=== PATIENT | female | born 1985 | race Caucasian/White ===

== ENCOUNTER → 2020-11-15 09:59 | Outpatient (CLI) | payer BC, SELFPAY ==
[2020-11-15 10:26] LABS: Add Manual Diff / Slide Review NO; Basophils Absolute Auto 100 /uL (0-100); Basophils Percent Auto 0.6 % (0-2); Eosinophils Absolute Auto 300 /uL (0-450); Hemoglobin 11.8 g/dL (12.0-16.0); Lymphocytes Absolute Auto 2100 /uL (1100-4500); Lymphocytes Percent Auto 22.1 % (25-40); Mean Corpuscular HGB Conc 33.6 % (30-36); Mean Corpuscular Hemoglobin 30.1 PG (26-34); Mean Corpuscular Volume 89.6 fL (80-100); Monocytes Absolute Auto 500 /uL (0-900); Monocytes Percent Auto 5.2 % (3-14); Neutrophils Absolute Auto 6700 /uL (1500-7000); Neutrophils Percent Auto 69.1 % (50-75); Platelet Count 278 X10^3/uL (150-400); Red Blood Cell Count 3.91 X10^6/uL (4.0-5.2); Red Cell Distribution Width 14.5 % (11.6-14.8); White Blood Cell Count 9.7 X10^3/uL (4.5-11.0)
[2020-11-15 11:20] LABS: Appearance Urine UA CLEAR; Bilirubin Urine UA NEGATIVE (NEGATIVE); Color Urine UA YELLOW; Glucose Urine UA NEGATIVE (Negative); Ketones Urine UA NEGATIVE (NEGATIVE); Leukocyte Esterase Urine UA NEGATIVE (NEGATIVE); Nitrite Urine UA NEGATIVE (Negative); Occult Blood Urine UA NEGATIVE (Negative); Protein Urine UA NEGATIVE (Negative); Urobilinogen Urine UA 0.2 E.U./dL (0.2)
[2020-11-15 11:25] LABS: Hepatitis B Surface Antigen NEGATIVE s/c (NEGATIVE)
[2020-11-15 11:39] LABS: HIV 1 & 2 Ab/Ag 4th Gen Combo NEGATIVE (NEGATIVE); Hep C Virus Ab w/Reflex Quant NEGATIVE s/c (NEGATIVE)
[2020-11-16 06:19] LABS: RPR Screen Non Reactive (Non Reactive)
[2020-11-16 09:33] LABS: Varicella IgG Antibody 2007 index (Immune >165)
== END ==
PROVIDERS: Family Provider Specialist; Referring Provider Specialist; Visit Provider Specialist
DX: Z34.81 Encounter for supervision of other normal pregnancy, first trimester (principal)
CPT/HCPCS: 36415; 80055; 81003; 86787; 86803; 86850; 86900; 86901; 87086; 87389

== ENCOUNTER → 2020-11-29 10:12 | Outpatient (CLI) | payer BC, SELFPAY | PROVIDERS: Family Provider Specialist; Referring Provider Specialist; Visit Provider Specialist | DX: O09.521 Supervision of elderly multigravida, first trimester (principal); O09.811 Supervision of pregnancy resulting from assisted reproductive technology, first trimester; Z36.0 Encounter for antenatal screening for chromosomal anomalies | CPT/HCPCS: 36415; 81420 ==

== ENCOUNTER → 2021-01-24 15:41 | Outpatient (CLI) | payer BC, SELFPAY ==
--- NOTE | 2021-01-24 15:41 | DI.US.S_ITS ---
PROCEDURE: US OB >= 14 WEEKS FETUS INDICATIONS: 20 WEEK ANATOMY OUTSIDE/PRIOR DATING DATA: Last menstrual period (LMP): 08/27/2020. LMP-based estimated date of delivery (DANIAL): 06/03/2021 . First dating scan (date and location): 01/24/2021 . Estimated date of delivery (DANIAL) from first dating scan: 06/05/2021 . TECHNIQUE: Real-time scanning was performed of the fetus, with image documentation and biometric measurements. Endovaginal scanning: No COMPARISON: [facility], , OB <= 14 WEEKS FETUS, 11/15/2020, 9:45. FINDINGS: General: A single living intrauterine gestation is present. Presentation: Variable. Placenta: Placental position is anterior , without previa. Amniotic fluid index: 12.6 cm, normal range is 5-24 cm. heart rate: 141 beats per minute. Maternal cervical canal: 4.0 cm long. Normal lower limit is 2.5 cm. biometrics: Biparietal diameter: 20 weeks 6 days Head circumference: 20 weeks 4 days Abdominal circumference: 20 weeks 4 days Femur length: 22 weeks 3 days Estimated gestational age from initial scan: not applicable. Composite gestational age from present scan: 21 weeks 1 day Estimated weight and percentile: 416 g; 39 percentile. Measurement variability for biometric dating: +/- 7 days from 14 weeks to 15 weeks 6 days gestation, +/- 10 days from 16 weeks to 21 weeks 6 days gestation, +/- 2 weeks from 22 weeks to 27 weeks 6 days gestation, +/- 3 weeks for 28 weeks gestation or later. weight reference: 4500 g or EFW >90/95% is considered macrosomia or large for gestational age. EFW <10% is small for gestational age. EFW 5% or less is considered intra-uterine growth restriction. Anatomic survey: Neuro: Ventricles are non-dilated at less than 10 mm. Cisterna magna is normal at 3-11 mm. Cerebellum is normal in size and morphology. Nuchal skin fold: Normal at less than 6 mm between 14-21 weeks gestational age. Face: Not well seen. Spine: No evidence for spina bifida. Heart: Not well seen. Diaphragm: Diaphragm is intact. Stomach: Left-sided stomach is present. Kidneys: No hydronephrosis. Normal is less than 5 mm in 2nd trimester, less than 7 mm in 3rd trimester. Cord: 3-vessel cord has orthotopic insertion. Bladder: Normal in size. Extremities: All 4 extremities identified. IMPRESSION: 1. 21 week 1 day single living IUP corresponding to ultrasound DANIAL of 06/05/2021. 2. face and heart suboptimally visualized; otherwise normal anatomy. Follow-up is recommended. Dictated by: Santos Montiel [facility] Interpreted: Radha Billy MD on 01/24/2021 at 16:58 Transcribed by: RASHMI on 01/24/2021 at 17:01 Approved by: Radha Billy MD, PhD on 01/24/2021 at 18:00
== END ==
PROVIDERS: Family Provider Specialist; Referring Provider Specialist; Visit Provider Specialist
DX: Z34.82 Encounter for supervision of other normal pregnancy, second trimester (principal); Z3A.21 21 weeks gestation of pregnancy
CPT/HCPCS: 76811

== ENCOUNTER → 2021-02-08 16:13 | Outpatient (CLI) | payer BC, SELFPAY ==
--- NOTE | 2021-02-08 16:15 | DI.US.S_ITS ---
PROCEDURE: US OB FOLLOW UP INDICATIONS: FOLLOW UP FACE AND HEART OUTSIDE/PRIOR DATING DATA: Last menstrual period (LMP): 08/27/20 . LMP-based estimated date of delivery (DANIAL): 06/03/21 . First dating scan (date and location): 01/24/21 . Estimated date of delivery (DANIAL) from first dating scan: 06/05/21 . TECHNIQUE: Real-time scanning was performed of the fetus, with image documentation. Endovaginal scanning: Not performed COMPARISON: [facility], OB >= 14 WEEKS FETUS, 01/24/2021, 14:55. FINDINGS: A single living intrauterine gestation is present. Presentation: Variable. Placenta: Placental position is anterior , without previa. Amniotic fluid index: 16.3 cm, normal range is 5-24 cm. heart rate: 144 beats per minute. Maternal cervical canal: 3.2 cm long. Normal lower limit is 2.5 cm. Estimated gestational age from initial scan: 23 weeks two days . 4 chambered heart and normal cardiac outflow tracts were seen on today's exam. facial profile including orbits, nose, and lips appear normal. IMPRESSION: 1. Single living intrauterine . 2. Completion of a normal anatomic survey with visualization of normal heart and facial features. Dictated by: Margret Murillo M.D. on 02/09/2021 at 10:14 Approved by: Margret Murillo M.D. on 02/09/2021 at 10:18
== END ==
PROVIDERS: Family Provider Specialist; Referring Provider Specialist; Visit Provider Specialist
DX: Z36.2 Encounter for other antenatal screening follow-up; Z3A.23 23 weeks gestation of pregnancy
CPT/HCPCS: 76816

== ENCOUNTER → 2021-03-19 13:12 | Outpatient (CLI) | payer BC, SELFPAY ==
[2021-03-19 17:11] LABS: Hematocrit 30.7 % (36-46); Hemoglobin 10.2 g/dL (12.0-16.0)
[2021-03-19 17:40] LABS: GTT (PREG) 1 Hour PP 50gm Dose 140 mg/dL (76-139)
== END ==
PROVIDERS: Family Provider Specialist; Referring Provider Specialist; Visit Provider Specialist
DX: Z34.82 Encounter for supervision of other normal pregnancy, second trimester (principal); Z3A.26 26 weeks gestation of pregnancy
CPT/HCPCS: 36415; 82950; 85014; 85018

== ENCOUNTER → 2021-03-28 08:21 | Outpatient (CLI) | payer BC, SELFPAY ==
[2021-03-28 09:12] LABS: Glucose Fasting Gestational 83 mg/dL (76-95)
[2021-03-28 10:19] LABS: Glucose 1 Hour Gest 170 mg/dL (76-180)
[2021-03-28 11:06] LABS: Glucose 2 Hour Gest 164 mg/dL (76-155)
[2021-03-28 11:42] LABS: Glucose Tol Interp,Gestational INTERPRETATION
[2021-03-28 13:30] LABS: Glucose 3 Hour Gest 67 mg/dL (76-140)
== END ==
PROVIDERS: Family Provider Specialist; Referring Provider Specialist; Visit Provider Specialist
DX: O99.810 Abnormal glucose complicating pregnancy (principal)
CPT/HCPCS: 36415; 82951; 82952

== ENCOUNTER → 2021-05-04 17:27 | Outpatient (CLI) | payer BC, SELFPAY ==
[2021-05-05 12:50] LABS: Strep Grp B PCR POS for Grp B Strep
== END ==
PROVIDERS: Family Provider Specialist; Visit Provider Specialist
DX: Z34.83 Encounter for supervision of other normal pregnancy, third trimester (principal); Z3A.35 35 weeks gestation of pregnancy
CPT/HCPCS: 87653

== ENCOUNTER 2021-05-29 05:26 | Inpatient (IN) | payer OTHER, SELFPAY ==
[2021-05-29] VITALS (7 sets, daily range): BP systolic 88–155; BP diastolic 48–92; PULSE 72–94; RESP 12–16; TEMP 36.3–37.1; O2SAT 97–100
[2021-05-29 06:42] LABS: Add Manual Diff / Slide Review NO; Basophils Absolute Auto 100 /uL (0-100); Basophils Percent Auto 0.9 % (0-2); Eosinophils Absolute Auto 200 /uL (0-450); Eosinophils Percent Auto 2.7 % (2-4); Hematocrit 32.9 % (36-46); Hemoglobin 11.1 g/dL (12.0-16.0); Lymphocytes Absolute Auto 1900 /uL (1100-4500); Lymphocytes Percent Auto 21.7 % (25-40); Mean Corpuscular HGB Conc 33.7 % (30-36); Mean Corpuscular Hemoglobin 29.4 PG (26-34); Mean Corpuscular Volume 87.4 fL (80-100); Monocytes Absolute Auto 600 /uL (0-900); Neutrophils Absolute Auto 5900 /uL (1500-7000); Neutrophils Percent Auto 67.7 % (50-75); Platelet Count 191 X10^3/uL (150-400); Red Blood Cell Count 3.76 X10^6/uL (4.0-5.2); Red Cell Distribution Width 16.1 % (11.6-14.8); White Blood Cell Count 8.7 X10^3/uL (4.5-11.0)
--- NOTE | 2021-05-29 06:47 | P.HPOB_ITS ---
OB HPI Date/Time Date of admission: 05/29/21 Date Patient Seen: 05/29/21 Time Patient Seen: 06:47 History of Present Condition Chief complaint: REPEAT : 2 Para: 1 Estimated Date of Delivery: 06/03/21 Estimated Gestational Age (weeks): 39 Narrative: Richelle Iniguez is a 36 year old female admitted for repeat section at 39 weeks Indications Operative indications ( section): previous uterine surgery History of Present care: good care, initiated at week # (11), number of visits (8) and pounds weight gain (36) Dating criteria: other (Embryo transfer) Ultrasounds: normal mid trimester US Obstetrical complications: none Medical complications: none Preadmission Labs Blood type: O (+) positive -: Antibody screen: negative, GBS status: positive, HBsAG: negative, HIV: negative and RPR/VDLR: negative -: Chlamydia screen: not detected and Gonorrhea screen: not detected -: Rubella: immune and Varicella: immune Cell-free DNA: Normal female 1 hr GTT: 140 3 hr GTT: 1 hr (170), 2 hr (164) and 3 hr (67) Fasting blood glucose: 83 Prior (ies) History: 10/07/16 39 week gestation 9 lb 3 oz male Evaluation Evaluation Baseline heart rate: 140 Variability: Moderate (11-25) monitor accelerations: Present Monitor Decelerations: Absent Contraction Frequency (minutes): 0 Category of Tracing: Reactive Status: Category l PFSH Medical History (Updated 03/19/21 @ 14:54 by Darcy Abreu MD) AMA (advanced maternal age) multigravida 35+ COVID-19 virus infection (~12/2020) Delivered by section Gestational hypertension History of in vitro fertilization (~09/15/20) HSV-1 infection (~2015) Infertility PCOS (polycystic ovarian syndrome) Post depression (~2016) Surgical History (Updated 11/06/20 @ 14:44 by Ashly Cullen RN) History of primary section (~10/07/16) [place] teeth extracted Family History (Updated 11/06/20 @ 14:43 by Ashly Cullen RN) Mother Cancer Breast cancer Father Diabetes mellitus Heart disease Cancer Prostate cancer Shingles Cirrhosis of liver Type 2 diabetes mellitus Grandmother Old age Grandfather CVA (cerebral vascular accident) Pneumonia Grandmother Cancer Grandfather Cancer Heavy smoker Lung cancer Brother Diabetes mellitus Type 2 diabetes mellitus Family/Other Altered cardiac tissue perfusion Social History marital status: number of children: 1 household members: spouse and children lives independently: Yes pets and animals: Yes (Dogs X 2; outdoor cats X 2) education level: college (BA in Psych) occupational status: employed current occupational exposures/hazards: No Previous occupational history: [employer]; Works at [employer] special chel needs: No Smoking Status: Former smoker (Experimental use on rare occasion ) second hand exposure: No alcohol intake: former (pre- : social use/on occasion/weekends) substance use type: does not use Meds Home Medications and Allergies Home Medications Medication Instructions Recorded Confirmed Type prenat.vits,michael,nmu-csui-zeosd 1 tab PO DAILY 11/06/20 05/18/21 History hydroxyzine pamoate 25 mg capsule 25 mg PO BEDTIME #30 cap 03/19/21 05/18/21 Rx Allergies Allergy/AdvReac Type Severity Reaction Status Date / Time No Known Drug Allergies Allergy Unverified 11/15/20 08:55 Review of Systems Review of Systems Narrative: Patient denies headaches, scotomata, epigastric pain. No leakage of fluid. Good movement. OB Exam Narrative Exam Narrative: Blood pressure 134/84, pulse of 80, temperature 97.5? HEENT exam within normal limits. Lungs are clear to auscultation percussion. Heart is regular rate and rhythm no S3-S4 murmurs. Abdomen is gravid. Fetus is vertex. Extremities without edema and nontender. Objective Labs Result Diagrams: 05/29/21 06:20 Labs: Laboratory Results - last 24 hr 05/29/21 06:20 WBC 8.7 RBC 3.76 L Hgb 11.1 L Hct 32.9 L MCV 87.4 MCH 29.4 MCHC 33.7 RDW 16.1 H Plt Count 191 Neut % (Auto) 67.7 Lymph % (Auto) 21.7 L [place] % (Auto) 7.0 Eos % (Auto) 2.7 Baso % (Auto) 0.9 Neut # (Auto) 5900 Lymph # (Auto) 1900 [place] # (Auto) 600 Eos # (Auto) 200 Baso # (Auto) 100 Assessment and Plan Assessment and Plan Assessment and Plan narrative: 39 week gestation with prior section for repeat
--- NOTE | 2021-05-29 06:52 | PM.PREOP ---
Pre-operative Note COVID-19 COVID-19 status: Result pending Result date/Date tested (Pos, Neg/Pending): 05/29/21 Interval Note History & Physical reviewed/Exam performed by Physician: Yes Changes to H&P: No
[2021-05-29 06:58] LABS: COVID19 -Nasal RAPID Negative (Negative)
--- NOTE | 2021-05-29 07:12 | SUR.OPER ---
Supine on padded OR bed, head on pillow, arms secured on padded arm boards at <90 degrees abduction, legs uncrossed, safety belt at thigh, tape over blanket over lower legs. Bump placed under patient's right hip.
[2021-05-29] MEDS: LACTATED RINGERS 1,000 ML 100 ML IV ×4 (07:22→15:55)
[2021-05-29] MEDS: CEFAZOLIN 2 GM/20 ML SYRINGE IV (08:30)
--- NOTE | 2021-05-29 09:13 | SUR.OPER ---
cord blood x2 and placenta given to ob nurse. Viable baby girl born at 0908.
--- NOTE | 2021-05-29 10:00 | PM.OBCS.1 ---
Operative Date/Time/Diagnoses Date of procedure: 05/29/21 Time of procedure: 10:00 Pre-op diagnosis: Prior at 39 weeks for repeat Post-op diagnosis: same Procedure & Clinicians Procedure: Repeat low-transverse section Same procedure as scheduled: Yes Indications: Prior section at 39 week Surgeon: Darcy Abreu Sap Business Objects Developer: Keely Bryant Anesthesia Type: Spinal Operative Notes Findings: Normal tubes, slightly enlarged ovaries suggestive of PCO, normal uterus. Viable female weighing 8 lb 3 oz with Apgars of 9 and 9 Closure Type: primary Specimen(s): cord blood Intraoperative meds administered: Duramorph, Ketorolac and Pitocin Applied: Catheter (Emanuel) Estimated Blood Loss (mL): 300 Blood products transfused: none Procedure in detail: The patient was brought to the operating room where she underwent a spinalfor anesthesia. She was placed in a supine position with a left lateral tilt. A Emanuel catheter was placed. Pulsatile stockings were placed and functional throughout the case. 2 g of Ancef were given IV prior to the incision. Warming was in place. The patient was prepped and draped in usual sterile fashion. A low transverse incision was made with a scalpel through the prior incision and the incision was carried down to the fascial layer which was incised transversely with scissors. The executive administrative assistant did her side of the incision. The midline attachments are superiorly and inferiorly. Some bleeding was controlled Bovie. The rectus muscles were in the midline and the peritoneal incision was made with no damage to internal structures. The peritoneum was incised and superiorly and inferiorly. The incision was stretched with the surgeon and executive administrative assistant placing traction. Bladder blade was placed and a bladder flap was developed and the bladder held away from the lower uterine segment. An incision was made in the uterus with the scalpel and the incision was extended with stretching. The head was elevated out of the abdomen with vacuum assist and with fundal pressure by the executive administrative assistant the baby was delivered. The was bulb suctioned for clear fluid and handed off to the warmer. Cord blood was collected. The placenta delivered spontaneously with traction. The uterus was cleaned with clean laps. The uterine incision was closed in 2 layers of 0 chromic suture the first a running locking layer the second an imbricating layer. The executive administrative assistant was helping to expose the incision. The bladder peritoneum was repaired with 2-0 Vicryl suture. The gutters were cleaned of any remaining fluids and ovaries and tubes were observed to be normal. Adequate hemostasis was noted. The perineum was closed with 2-0 Vicryl suture. The fascia layer was closed with 0 Vicryl suture with 2 stitches. The executive administrative assistant repairing half the incision with helping to retract and expose the incision for the other half. The incision was irrigated and adequate hemostasis noted. The incision was closed with interrupted 3-0 Vicryl sutures and then a subcuticular stitch of 4-0 Vicryl suture. Steri-Strips were placed. The uterus was massaged to remove any clots. The patient went to recovery room in good condition. Counts of instruments and sponges were correct. Dr. Bryant was present throughout the case to assist with retraction, fundal pressure to deliver the infant, and suturing half the fascia. Complications: none Baby 1: Infant Gender: Female Presentation: vertex Position: Right Occiput Anterior Placental Delivery Description: Expressed Cord Vessel Description: 3 Vessels score (1 min): 9 score (5 min): 9 weight: 8 lb 3 oz Post-operative Condition: stable Disposition: other ( Center) Aftercare: routine postop
[2021-05-29] MEDS: OXYCODONE IR 5 MG TABLET PO (10:10)
[2021-05-29] MEDS: ACETAMINOPHEN 325 MG TABLET 650 MG PO ×2 (10:10→17:54)
--- NOTE | 2021-05-29 10:37 | SUR.PHASEI ---
Patient transferred to to room 2. SBAR handoff to Yoana RN at bedside with fundal and lolis-pad checked. Emanuel intact draining clear yellow urine. Bedin low position. Call light in reach.
[2021-05-29] MEDS: KETOROLAC 30 MG/ML VIAL IV ×2 (15:54→22:13)
[2021-05-30] MEDS: KETOROLAC 30 MG/ML VIAL IV (05:07)
[2021-05-30 06:45] LABS: Hematocrit 28.1 % (36-46); Hemoglobin 9.7 g/dL (12.0-16.0)
[2021-05-30] MEDS: DOCUSATE 100 MG CAPSULE 200 MG PO (09:02)
[2021-05-30] MEDS: ACETAMINOPHEN 325 MG TABLET 650 MG PO (09:09)
--- NOTE | 2021-05-30 12:55 | P.DS_ITS ---
Discharge Providers Provider Date of admission: 05/29/21 05:26 Discharge Date: 05/30/21 Consults: 05/29/21 10:39 Consult to Contract Project Manager Routine Comment: Discharge provider: Darcy Abreu MD Summary Hospital Course Date Patient Seen: 05/30/21 Time Patient Seen: 12:55 Diagnoses: Repeat low-transverse section Hospital Course: Patient came in on 05/29/2021 for repeat low-transverse section at 39 weeks. Patient is urinating and ambulating well. Her pain is under control. Mild lochia. is going well. Patient is passing gas. Peripartum Data Delivery Method: Section (Repeat) Procedures: Repeat low-transverse section complications: none [place] 1: Gender: Female Disposition of : home Discharge Diagnosis (1) Status post repeat low transverse section: Status: Acute Status at Discharge Cognitive/behavioral status at discharge: oriented Functional status at discharge: independent ambulation Overall status at discharge: patient is progressing back to baseline Time Spent with Patient Time attestation: Total time spent providing and/or coordinating discharge services: Time spent: Less than 30 minutes Objective Labs Result Diagrams: 05/30/21 06:19 Labs: Laboratory Results - last 24 hr 05/30/21 06:19 Hgb 9.7 L Hct 28.1 L Exam Vital Signs (past 8 hours): Blood pressure 132/74, pulse of 102, temperature 97.3? Oxygen Delivery Method Room Air Narrative Exam Narrative: Abdomen is soft, nontender. Uterus is firm, at U, nontender. Dressing is clean, dry, intact. Mild lochia. Extremities without edema. Patient's blood type is Rh positive, she is rubella immune, she received Tdap in the 3rd trimester. Discharge Plan Discharge Plan Patient Disposition: Home Discharge orders & Medications Prescriptions: New ibuprofen 600 mg Tablet 600 mg PO Q6H PRN (Reason: Fever/Mild Pain (1-3)) Qty: 30 0RF oxycodone 5 mg Tablet 5 mg PO Q4H PRN (Reason: Pain, Moderate (4-6)) Qty: 20 0RF Continued prenat.vits,michael,qcr-tirl-zhima Tablet 1 tab PO DAILY 0RF hydroxyzine pamoate 25 mg capsule 25 mg PO BEDTIME Qty: 30 3RF Follow up/Referrals: Darcy Abreu MD [Family Provider] - 1 Week (Aquacel removal) Diet/Activity/Treatments Diet: Regular Activity: Nothing in vagina or lifting over 20 lb for 6 weeks Skin/Wound/Dressing Care Report to your healthcare provider any signs of infection, such as:: chills, fever and increased pain Dressing: Leave dressing on until postop appointment in 1 week
[2021-05-30] MEDS: IBUPROFEN 600 MG TABLET PO (14:16)
[2021-05-30] MEDS: OXYCODONE IR 5 MG TABLET PO (14:17)
== END 2021-05-30 14:58 | disposition home or self-care (01) | DRG 788 ==
PROVIDERS: Admitting Provider Specialist; Family Provider Specialist; Referring Provider Specialist; Visit Provider Specialist
PROC: 10D00Z1 Extraction of Products of Conception, Low, Open Approach (ICD-10-PCS; CPT 59514; principal; 2021-05-29 07:45)
DX: O34.211 Maternal care for low transverse scar from previous cesarean delivery (principal); Z3A.39 39 weeks gestation of pregnancy; Z37.0 Single live birth; O99.824 Streptococcus B carrier state complicating childbirth; Z86.16 Personal history of COVID-19; Z20.822 Contact with and (suspected) exposure to COVID-19
CPT/HCPCS: 36415; 59050; 59510; 59514; 85014; 85018; 85025; 86850; 86900; 86901; 87635; C9803; J0690; J1885; J2274; J2405; J2590; J3010